=== PATIENT | female | born 1975 | race Caucasian/White ===

== ENCOUNTER → 2020-07-24 08:01 | Outpatient (CLI) | payer OTHER, SELFPAY ==
[2020-07-24 20:20] LABS: SARS-CoV-2 RNA PCR Negative
== END ==
PROVIDERS: PCP Family Medicine; Visit Provider Physician Assistant Medical
DX: R05 Cough (principal); Z20.822 Contact with and (suspected) exposure to COVID-19
CPT/HCPCS: C9803; U0003; U0005

== ENCOUNTER → 2021-01-23 01:44 | Outpatient (CLI) | payer OTHER, SELFPAY ==
[2021-01-23 22:24] LABS: SARS-CoV-2 RNA PCR Positive
== END ==
PROVIDERS: PCP Family Medicine; Visit Provider Physician Assistant Medical
DX: U07.1 COVID-19 (principal); R09.89 Other specified symptoms and signs involving the circulatory and respiratory systems
CPT/HCPCS: C9803; U0003; U0005

== ENCOUNTER 2021-01-27 12:10 | Outpatient (RCR) | payer OTHER, SELFPAY ==
[2021-01-27] MEDS: ACETAMINOPHEN 325 MG TABLET 650 MG PO (12:36)
[2021-01-27] MEDS: FAMOTIDINE 20 MG TABLET PO (12:37)
[2021-01-27 12:52] VITALS: BP 141/85; PULSE 78; RESP 20; TEMP 36.7; O2SAT 100
== END 2021-01-27 13:30 ==
LOC: AMCINF 12:10
PROVIDERS: PCP Physician Assistant Medical; Referring Provider Physician Assistant Medical; Visit Provider Internal Medicine Hematology & Oncology
DX: Z23 Encounter for immunization (principal); U07.1 COVID-19
CPT/HCPCS: A9270; M0243; Q0243

== ENCOUNTER 2022-06-04 19:41 | Emergency (ER) | payer OTHER, SELFPAY ==
[2022-06-04 19:49] VITALS: BP 153/87; PULSE 74; RESP 16; TEMP 36.1; O2SAT 100
--- NOTE | 2022-06-04 19:58 | ED.GENADULT ---
HPI - General Adult General Chief complaint: Extremity Injury, Upper Stated complaint: Swollen Lt Hand Time Seen by Provider: 06/04/22 19:50 Source: patient, RN notes reviewed and old records reviewed Mode of arrival: ambulatory Limitations: no limitations History of Present Illness HPI narrative: 46 year old presents to [facility] with complaints of some swelling to her left dorsal hand and dorsal middle finger for the past 2 days. Skin on dorsal left hand and middle finger has some darker pink discoloration and area on hand that appears like a bruise. Patient denies any injury to her hand, has history of Rheumatoid arthritis and is on Plaquenil.Patient has full mobility of her left hand and fingers, denies pain states hand feels tight. Patient denies any tingling or numbness to her left hand has not applied ice or taken any OTC medications. MD complaint: some discoloration and swelling left dorsal hand and middle finger Onset (ago): day(s) (2) Treatments prior to arrival: none Related Data Home Medications Medication Instructions Recorded Confirmed hydroxychloroquine 200 mg tablet 200 mg PO DAILY 01/27/21 06/04/22 (Plaquenil) Allergies Allergy/AdvReac Type Severity Reaction Status Date / Time codeine Allergy Mild Nausea and Verified 06/04/22 19:55 Vomiting hydrocodone Allergy Mild Nausea and Verified 06/04/22 19:55 Vomiting amoxicillin Allergy Rash Verified 06/04/22 19:55 Sulfa (Sulfonamide Allergy rash, Verified 06/04/22 19:55 Antibiotics) itching Review of Systems Review of Systems: CONSTITUTIONAL: Denies fever, chills, or sweats. EYES: Denies visual changes, redness, or discharge. ENT: Denies rhinorrhea, congestion, sore throat, or otalgia. CARDIOVASCULAR: Denies chest pain, palpitations, or edema. RESPIRATORY: Denies cough or dyspnea. GASTROINTESTINAL: Denies abdominal pain, nausea, vomiting, or diarrhea. GENITOURINARY: Denies dysuria or hematuria. SKIN: Denies rash or itching.mild swelling to dorsal left hand with discoloration and middle dorsal finger MUSCULOSKELETAL: Denies back pain, joint pain, or myalgia. NEUROLOGIC: Denies headache, numbness, or weakness. PSYCHIATRIC: Denies anxiety or depression. All systems reviewed & are unremarkable except as noted in HPI and below [facility] Past Medical History Medical History Rheumatoid arthritis Family History Family History Mother Hypertension Family history of elevated blood lipids Family history of cardiac disorder Grandparent Family history of malignant neoplasm of cervix Family history of coronary artery disease Family history of malignant neoplasm of ovary Diabetes mellitus Social History Social History Second hand tobacco smoke exposure: No Alcohol intake: never Spiritual care concerns: No Comments At time of signature, agree with nursing past medical, surgical, social and family history. There is no relevant family history pertinent to the presenting complaint Exam Narrative: GENERAL: Well-appearing, well-nourished, and in no acute distress. HEAD: Normocephalic, atraumatic. EYES: PERRLA and EOMI. ENT: Nares clear, no rhinorrhea or epistaxis. Mucous membranes moist.TM's normal, throat pink with no exudates or swelling NECK: Supple.no lymphadenopathy CHEST: Clear to auscultation. No respiratory distress.SAO2 100% on room air HEART: Regular rate and rhythm. No murmur heard. Normal peripheral pulses. ABDOMEN: Soft, nontender, nondistended, normal active bowel sounds. EXTREMITIES: Normal range of motion. No edema. SKIN: Warm, dry, no rash. mild swelling to dorsal left hand and middle finger with some discoloration of darker pink with small bruise to dorsal left hand, denies injury, full mobility, circulation and sensation intact.No break in skin integrity NEURO:
== END 2022-06-04 20:40 | disposition home or self-care (01) ==
PROVIDERS: Emergency Provider Registered Nurse; PCP Family Medicine
DX: R22.32 Localized swelling, mass and lump, left upper limb (principal); M06.9 Rheumatoid arthritis, unspecified
CPT/HCPCS: 99213; G0463